=== PATIENT | male | born 1970 ===

== ENCOUNTER 2017-11-26 08:26 | Inpatient (IN) | payer OTHER ==
[2017-11-26] VITALS (10 sets, daily range): BP systolic 92–127; BP diastolic 47–81
[~2017-11-26] VITALS: Ht 167.6 cm; Wt 86.6 kg
[~2017-11-26 08:26] MED LIST: Acetaminophen (Non formulary) 100 ML IV ONE; Atropine Inj 1mg/10ml Syr IV PRN; Dexamethasone 4mg/ml vial ONE; DiphenhydrAMINE 50mg/ml Inj IVP PRN; HYDROcodone/Acetamin 7.5/325 tab ORAL PRN; Hydromorphone 0.5mg/0.5ml inj IVP PRN; Ketorolac 30mg Inj IV PRN; LORazepam Inj 2mg/ml 1ml IV PRN; LR 1000ml 1,000 ML IVLG SCH; Labetalol 5mg/ml 20ml vial IV PRN; Lidocaine 1% MPF 10mg/ml 5ml ONE; Lidocaine 1% Plain 30 ml INJ ONE; Metoclopramide 10mg/2ml Inj IVP PRN; Midazolam 2mg/2ml Inj IVP PRN; NKM; Norco 5mg/325mg tab ORAL PRN; Sodium Chloride 10ml vial INJ ONE; ceFAZolin sod 2 GM in D5W 110 ML IVPB ONE; fentaNYL 100 mcg/2 mL IV PRN; oxyCODONE HCL/Acetaminophen 5/325mg ORAL PRN
[2017-11-26] MEDS ORDERED: Vancomycin 1gm inj IVPB ONE (09:14)
[2017-11-26] MEDS ORDERED: EPINEPHrine 1mg/1ml Amp ONE (09:14)
[2017-11-26] MEDS ORDERED: Thrombin 5000 units spray kit TOPIC ONE (09:15)
[2017-11-26] MEDS ORDERED: Gelfoam Absorbable 1gm powder pkt TOPIC ONE (09:15)
[2017-11-26] MEDS ORDERED: Bupivacaine 0.5% Inj 30 ml vial INJ ONE (09:15)
[2017-11-26] MEDS ORDERED: Thrombin 5000 units TOPIC ONE (09:15)
[2017-11-26] MEDS ORDERED: Bacitracin 50000 Units Vial ONE (09:16)
[2017-11-26] MEDS ORDERED: fentaNYL 100 mcg/2 mL IV ONE ×2 (09:45→12:53)
[2017-11-26] MEDS ORDERED: Zemuron 50mg/5ml Inj IV ONE (09:50)
--- NOTE | 2017-11-26 10:22 | Pre-Procedure Note/Attestation ---
Pre-Procedure Note/Attestation Complete Prior to Procedure Procedure Narrative: Left L4-5 and Left L5-S1 microdecompression and microdiscectomy Attestation I attest that I discussed the nature of the procedure; its benefits; risks and complications; and alternatives (and the risks and benefits of such alternatives ), prior to the procedure, with the patient (or the patient's legal sales representative cash registers). I attest that, if there was a reasonable possibility of needing a blood transfusion, the patient (or the patient's legal sales representative cash registers) was given the [facility] standardized written summary, pursuant to the Isidro Melia Blood Safety Act ([place] Health and Safety Code # 1645, as amended). I attest that I re-evaluated the patient just prior to the surgery and that there has been no change in the patient's H&P, except as documented below: Ganga Hdz MD Nov 26, 2017 10:22
--- NOTE | 2017-11-26 10:22 | Pre-Procedure Note/Attestation ---
Pre-Procedure Note/Attestation Attestation I attest that I discussed the nature of the procedure; its benefits; risks and complications; and alternatives (and the risks and benefits of such alternatives ), prior to the procedure, with the patient (or the patient's legal senior outside sales representative). I attest that, if there was a reasonable possibility of needing a blood transfusion, the patient (or the patient's legal senior outside sales representative) was given the [facility] Services standardized written summary, pursuant to the Siidro Towanda Blood Safety Act ([place] Health and Safety Code # 1645, as amended). I attest that I re-evaluated the patient just prior to the surgery and that there has been no change in the patient's H&P, except as documented below: Ganga Hdz MD Nov 26, 2017 10:22
[2017-11-26] MEDS ORDERED: Morphine Sulfate 2mg/ml Inj IV PRN ×2 (10:30→13:45)
[2017-11-26] MEDS ORDERED: Naloxone 0.4mg/ml Inj IVP PRN (10:30)
[2017-11-26] MEDS ORDERED: Morphine Sulfate 4mg/ml Inj IV PRN ×4 (10:30→13:45)
--- NOTE | 2017-11-26 11:33 | Anethesia Preoperative Eval ---
Anesthesia Pre-op PMH/ROS General Date of Evaluation: Nov 26, 2017 Time of Evaluation: 10:37 Anesthesiologist: Maricruz ASA Score: ASA 3 Mallampati Score Class I : Soft palate, uvula, fauces, pillars visible Class II: Soft palate, uvula, fauces visible Class III: Soft palate, base of uvula visible Class IV: Only hard plate visible Mallampati Classification: Class III Surgeon: Wilder Diagnosis: Back Pain Surgical Procedure: Left L4-5, L5-S1, Microdiscectomy, Foraminotomy, Laminectomy Anesthesia History: none Social History: current smoker Family History: no anesthesia problems Allergies: Coded Allergies: No Known Allergies (Unverified , 11/26/17) Medications: see eMAR Past Medical History Cardiovascular: Reports: HTN Anesthesia Pre-op Phys. Exam Physician Exam Last Vital Signs Date Time Temp Pulse Resp B/P (MAP) Pulse Ox O2 Delivery O2 Flow Rate FiO2 11/26/17 08:55 97.5 60 18 124/79 98 Room Air 97.5 Constitutional: NAD Neurologic: CN 2-12 intact Cardiovascular: RRR Respiratory: CTA Gastrointestinal: S/NT/ND Airway Exam Mallampati Score: Class III MO: limited ROM: full Teeth: intact Anesthesia Pre-op A/P Risk Assessment & Plan Assessment: ASA 3 Plan: GA, BIS, GlideScope Go Status Change Before Surgery: No Pre-Antibiotics Dru Grams Ancef IV Given Within 1 Hr of Incision: Yes Time Given: 10:46 Frederic Alcantara MD Nov 26, 2017 11:33
--- NOTE | 2017-11-26 11:34 | Immediate Post-Op Evaluation ---
Immediate Post-Op Evalulation Immediate Post-Op Evalulation Procedure: Left L4-5, L5-S1, Microdiscectomy, Foraminotomy, Laminectomy Date of Evaluation: Nov 26, 2017 Time of Evaluation: 13:54 IV Fluids: 1000 LR Blood Products: 0 Estimated Blood Loss: 75 Urinary Output: 0 Blood Pressure Systolic: 93 Blood Pressure Diastolic: 64 Pulse Rate: 75 Respiratory Rate: 16 O2 Sat by Pulse Oximetry: 95 Temperature (Fahrenheit): 97.8 Pain Score (1-10): 3 Nausea: No Vomiting: No Complications 0 Patient Status: awake, reacts, patent, extubated, none Hydration Status: adequate Dru Grams Ancef IV Given Within 1 Hr of Incision: Yes Time Given: 10:46 Frederic Alcantara MD Nov 26, 2017 11:34
[2017-11-26] MEDS ORDERED: Neostigmine 1mg/ml 10ml Inj ONE (12:32)
[2017-11-26] MEDS ORDERED: Glycopyrrolate 0.2mg/ml 1ml Vial ONE (12:32)
[2017-11-26] MEDS ORDERED: Metoprolol 5mg/5ml Inj ONE (13:12)
[2017-11-26] MEDS ORDERED: D5 1/2NS 1,000 ML IV SCH (13:38)
--- NOTE | 2017-11-26 13:38 | Brief Operative Note ---
Immediate Post Operative Note Operative Note Pre-op Diagnosis: lumbar radiculopathy Post-op Diagnosis: lumbar radiculopathy Post-op Diagnosis: same as pre-op Findings: consistent w/pre-op dx studies Surgeon: booker Armhole Baster Hand: christy Anesthesiologist: buzz Anesthesia: general Specimen: yes Complications: none Condition: stable Fluids: 1 liter Estimated Blood Loss: minimal - 75cc Drains: none Implant(s) used?: No Ganga Hdz MD Nov 26, 2017 13:37
[2017-11-26] MEDS ORDERED: Norco 5mg/325mg tab ORAL PRN (13:45)
[2017-11-26] MEDS ORDERED: HYDROcodone/Acetamin 7.5/325 tab ORAL PRN ×2 (13:45)
[2017-11-26] MEDS ORDERED: ceFAZolin sod 1 GM in D5W 55 ML IV SCH (14:00)
--- NOTE | 2017-11-26 14:57 | Diagnostic Imaging Report ---
Indication: Pain Technique: Intraoperative fluoroscopic image from spinal surgery. Operating surgeon:Wilder Total fluoroscopy time: 8.1 seconds Total fluoroscopy dose: 2.66 mGy Comparison: None Findings: Single intraoperative fluoroscopic image from spinal surgery submitted for archival the PACS. Image demonstrates surgical instruments projecting posteriorly over the level of L4-5 and L5-S1. Impression: Single intraoperative fluoroscopic image from spinal surgery submitted for archival the PACS. Please see operative report.
[2017-11-26] MEDS: D5 1/2NS 1,000 ML IV SCH (16:30)
[2017-11-26] MEDS ORDERED: Docusate 100mg cap ORAL SCH (18:00)
[2017-11-26] MEDS: Docusate 100mg cap ORAL SCH (18:00)
[2017-11-26] MEDS: ceFAZolin sod 1 GM in D5W 55 ML IV SCH (18:26)
[2017-11-27] VITALS: BP 117/73
[2017-11-27] MEDS: D5 1/2NS 1,000 ML IV SCH ×2 (01:33→12:28)
[2017-11-27] MEDS: ceFAZolin sod 1 GM in D5W 55 ML IV SCH ×2 (01:33→10:17)
[2017-11-27 04:00] VITALS: BP 105/61
[2017-11-27 08:00] VITALS: BP 117/68
--- NOTE | 2017-11-27 09:57 | General Progress Note ---
Progress Note Progress Note doing well [ no leg pain ambulating and eating well a adn o times 3 inc cdi 5/5 in the le calves soft and nt a: doing well p: oob and pt brace dc today pain meds follow up in 7 to 10 days. Ganga Hdz MD Nov 27, 2017 09:57
[2017-11-27] MEDS ORDERED: D5 1/2NS 1000ml IV ONE (10:02)
[2017-11-27] MEDS: Docusate 100mg cap ORAL SCH (10:17)
--- NOTE | 2017-11-27 11:11 | 48 Hour Post Anesthesia Eval ---
Post Anesthesia Evaluation Procedure: Left L4-5, L5-S1, Microdiscectomy, Foraminotomy, Laminectomy Date of Evaluation: Nov 27, 2017 Time of Evaluation: 08:00 Blood Pressure Systolic: 117 0: 68 Pulse Rate: 75 Respiratory Rate: 20 Temperature (Fahrenheit): 98.6 O2 Sat by Pulse Oximetry: 93 Airway: patent Nausea: No Vomiting: No Pain Intensity: 0 Hydration Status: adequate Mental Status/LOC: patient returned to baseline Post-Anesthesia Complications: none Follow-up care needed: N/A Sandie Garcia M.D. Nov 27, 2017 11:11
[2017-11-27 12:00] VITALS: BP 116/71
--- NOTE | 2017-11-27 12:48 | History and Physical ---
History of Present Illness General Date patient seen: Nov 26, 2017 Present Illness HPI 47 year old male with hx of radiculopathy presented to Er to undergo Left L4-5 , L5-S1, Microdiscectomy, Foraminotomy, Laminectomy. Post operatively pt is admitted to surgical floor for post op care. Allergies: Coded Allergies: No Known Allergies (Unverified , 11/26/17) Medication History Scheduled No Known Medications* (NKM - No Known Medications*), 0 ., (Reported) Patient History Healthcare decision maker IVONNE ABBOTT Resuscitation status Full Code Advanced Directive on File Past Medical/Surgical History Past Medical/Surgical History: (1) Lumbar radiculopathy Review of Systems Constitutional: Reports: no symptoms All Other Systems: negative except mentioned in HPI Physical Exam General Appearance: WD/WN, no apparent distress Lines, tubes and drains: peripheral, central line HEENT: normocephalic, atraumatic Neck: non-tender, normal alignment Respiratory/Chest: chest wall non-tender, lungs clear Cardiovascular/Chest: normal peripheral pulses, normal rate Abdomen: normal bowel sounds Genitourinary/Rectal: normal rectal exam Last 24 Hour Vital Signs Date Time Temp Pulse Resp B/P (MAP) Pulse Ox O2 Delivery O2 Flow Rate FiO2 11/27/17 11:11 209.5 75 20 93 11/27/17 08:00 98.6 75 20 117/68 93 Room Air 98.6 11/27/17 04:00 98.2 87 18 105/61 93 Room Air 98.2 11/27/17 00:00 98.0 88 20 117/73 93 Room Air 98.0 11/26/17 20:00 98.2 89 20 127/81 97 Room Air 3 98.2 11/26/17 18:30 98.1 87 20 101/64 97 Nasal Cannula 3 98.1 11/26/17 17:00 97.3 68 20 104/58 96 Nasal Cannula 3 97.3 11/26/17 16:02 97.5 85 18 94/59 94 Nasal Cannula 3 97.5 11/26/17 14:15 78 16 96/57 98 Nasal Cannula 3 11/26/17 14:00 58 16 92/47 98 Simple Mask 8 11/26/17 13:53 57 16 93/52 95 Simple Mask 8 11/26/17 13:48 69 16 101/63 95 Simple Mask 8 11/26/17 13:45 208.0 75 16 95 11/26/17 13:43 97.8 77 16 93/64 95 Simple Mask 8 97.8 Intake and Output 11/26/17 11/27/17 19:00 07:00 Intake Total 1605 ml 1140 ml Output Total 75 ml 1350 ml Balance 1530 ml -210 ml Intake Oral 250 ml 240 ml IV Total 1355 ml 900 ml Output Urine Total 1350 ml Estimated Blood Loss 75 ml # Voids 1 Height (Feet): 5 Height (Inches): 6.00 Weight (Pounds): 191 Medications Current Medications Medications (Trade) Dose Ordered Sig/Steffen Route PRN Reason Start Time Stop Time Status Last Admin Dose Admin Acetaminophen/ Hydrocodone Bitart ([place] 5/325) 1 tab Q3H PRN ORAL pain score 1-3 11/26/17 13:45 12/03/17 13:44 Acetaminophen/ Hydrocodone Bitart ([place] 7.5/325) 1 tab Q3H PRN ORAL pain score 4-6 11/26/17 13:45 12/03/17 13:44 Acetaminophen/ Hydrocodone Bitart ([place] 7.5/325) 2 tab Q3H PRN ORAL pain scale 7-10 11/26/17 13:45 12/03/17 13:44 Al Hydroxide/Mg Hydroxide (Mylanta) 30 ml Q6H PRN ORAL heartburn 11/26/17 22:45 12/26/17 22:44 11/26/17 22:49 Dextrose/Sodium Chloride 1,000 ml @ 100 mls/hr Q10H IV 11/26/17 15:45 12/26/17 15:44 11/27/17 12:28 Docusate Sodium (Colace) 100 mg TWICE A DAY ORAL 11/26/17 18:00 12/26/17 17:59 11/27/17 10:17 Morphine Sulfate (Morphine Sulfate) 2 mg Q4H PRN IV Mild Pain (Pain Scale 1-3) 11/26/17 13:45 12/03/17 13:44 Morphine Sulfate (Morphine Sulfate) 4 mg Q3H PRN IV Severe Pain (Pain Scale 7-10) 11/26/17 13:45 12/03/17 13:44 Morphine Sulfate (Morphine Sulfate) 4 mg Q4H PRN IV Moderate Pain (Pain Scale 4-6) 11/26/17 13:45 12/03/17 13:44 Naloxone HCl (Narcan) 0.1 mg PRN PRN IVP RR<12/min, pt unarousable 11/26/17 10:30 12/26/17 10:29 Assessment/Plan Problem List: (1) Lumbar radiculopathy ICD Codes: M54.16 - Radiculopathy, lumbar region SNOMED: [id number] (2) Left L4-5, L5-S1, Microdiscectomy Assessment/Plan post op care pain management antiemetics prn dvt prophylaxis Mohit Buckley MD Nov 27, 2017 12:48
--- NOTE | 2017-11-27 12:50 | Pulmonology Progress Note ---
Assessment/Plan Problems: (1) Lumbar radiculopathy (2) Left L4-5, L5-S1, Microdiscectomy Assessment/Plan pain is controlled doing better symptomatic treatment on Iv fluids prn IV and/or po analgesics Subjective ROS Limited/Unobtainable: No Constitutional: Reports: no symptoms HEENT: Repors: no symptoms Respiratory: Reports: no symptoms Allergies: Coded Allergies: No Known Allergies (Unverified , 11/26/17) Objective Last 24 Hour Vital Signs Date Time Temp Pulse Resp B/P (MAP) Pulse Ox O2 Delivery O2 Flow Rate FiO2 11/27/17 11:11 209.5 75 20 93 11/27/17 08:00 98.6 75 20 117/68 93 Room Air 98.6 11/27/17 04:00 98.2 87 18 105/61 93 Room Air 98.2 11/27/17 00:00 98.0 88 20 117/73 93 Room Air 98.0 11/26/17 20:00 98.2 89 20 127/81 97 Room Air 3 98.2 11/26/17 18:30 98.1 87 20 101/64 97 Nasal Cannula 3 98.1 11/26/17 17:00 97.3 68 20 104/58 96 Nasal Cannula 3 97.3 11/26/17 16:02 97.5 85 18 94/59 94 Nasal Cannula 3 97.5 11/26/17 14:15 78 16 96/57 98 Nasal Cannula 3 11/26/17 14:00 58 16 92/47 98 Simple Mask 8 11/26/17 13:53 57 16 93/52 95 Simple Mask 8 11/26/17 13:48 69 16 101/63 95 Simple Mask 8 11/26/17 13:45 208.0 75 16 95 11/26/17 13:43 97.8 77 16 93/64 95 Simple Mask 8 97.8 Intake and Output 11/26/17 11/27/17 19:00 07:00 Intake Total 1605 ml 1140 ml Output Total 75 ml 1350 ml Balance 1530 ml -210 ml Intake Oral 250 ml 240 ml IV Total 1355 ml 900 ml Output Urine Total 1350 ml Estimated Blood Loss 75 ml # Voids 1 General Appearance: WD/WN HEENT: atraumatic Respiratory/Chest: chest wall non-tender, lungs clear Cardiovascular: normal peripheral pulses, normal rate Abdomen: normal bowel sounds, soft, non tender Genitourinary: normal external genitalia Extremities: no cyanosis Skin: no lesions 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 Complete Current Medications Medications (Trade) Dose Ordered Sig/Steffen Route PRN Reason Start Time Stop Time Status Last Admin Dose Admin Acetaminophen/ Hydrocodone Bitart ([place] 5/325) 1 tab Q3H PRN ORAL pain score 1-3 11/26/17 13:45 12/03/17 13:44 Acetaminophen/ Hydrocodone Bitart ([place] 7.5/325) 1 tab Q3H PRN ORAL pain score 4-6 11/26/17 13:45 12/03/17 13:44 Acetaminophen/ Hydrocodone Bitart ([place] 7.5/325) 2 tab Q3H PRN ORAL pain scale 7-10 11/26/17 13:45 12/03/17 13:44 Al Hydroxide/Mg Hydroxide (Mylanta) 30 ml Q6H PRN ORAL heartburn 11/26/17 22:45 12/26/17 22:44 11/26/17 22:49 Dextrose/Sodium Chloride 1,000 ml @ 100 mls/hr Q10H IV 11/26/17 15:45 12/26/17 15:44 11/27/17 12:28 Docusate Sodium (Colace) 100 mg TWICE A DAY ORAL 11/26/17 18:00 12/26/17 17:59 11/27/17 10:17 Morphine Sulfate (Morphine Sulfate) 2 mg Q4H PRN IV Mild Pain (Pain Scale 1-3) 11/26/17 13:45 12/03/17 13:44 Morphine Sulfate (Morphine Sulfate) 4 mg Q3H PRN IV Severe Pain (Pain Scale 7-10) 11/26/17 13:45 12/03/17 13:44 Morphine Sulfate (Morphine Sulfate) 4 mg Q4H PRN IV Moderate Pain (Pain Scale 4-6) 11/26/17 13:45 12/03/17 13:44 Naloxone HCl (Narcan) 0.1 mg PRN PRN IVP RR<12/min, pt unarousable 11/26/17 10:30 12/26/17 10:29 Mohit Buckley MD Nov 27, 2017 12:50
[2017-11-27] MEDS ORDERED: NAPROXEN250 MG ORAL (13:04)
[2017-11-27] MEDS ORDERED: NORCO 5-325 TA1 EACH ORAL (13:07)
[2017-11-27] MEDS ORDERED: SOMA350 MG PO (13:08)
--- NOTE | 2017-11-28 01:00 | Operative Note - Dictated ---
DATE OF OPERATION: 11/26/2017 PREOPERATIVE DIAGNOSIS: L4-5 disk protrusion with L5-S1 disk extrusion and stenosis and left lower extremity radiculopathy. POSTOPERATIVE DIAGNOSIS: L4-5 disk protrusion with L5-S1 disk extrusion and stenosis and left lower extremity radiculopathy. PROCEDURE PERFORMED: 1. Left L4-L5 medial facetectomy, laminotomy, foraminotomy, and microdiskectomy. 2. Left L5-S1 laminotomy, medial facetectomy, foraminotomy, and microdiskectomy with lower extremity radiculopathy. 3. Intraoperative use of microscope, intraoperative use of fluoroscopy. SURGEON: Ganga Hdz M.D. BLINTZE ROLLER: Jose De Jesus Mosley M.D. ANESTHESIA: General endotracheal anesthesia. ANESTHESIOLOGIST: Dr. Alcantara. INTRAOPERATIVE FINDINGS: Large disk herniations at L4-L5 and L5-S1 causing impingement of the neural elements. The traversing L5 and S1 nerve roots with foraminal stenosis at L4-L5 and L5-S1 on the left side. ESTIMATED BLOOD LOSS: 50 mL. FLUIDS: One liter crystalloid. INDICATIONS: The is a pleasant gentleman who failed nonoperative treatment and options for above treatment was given. Risks, alternatives, and benefits were addressed and discussed with the patient at length. The patient wished to proceed. The risks include, but are not limited to, anesthesia complications including , medical complications including liver, kidney, cardiopulmonary deficits, infection, bleeding, dural tear, CSF leak, nerve root injury, pars fracture, instability, reherniation, as well as continued symptoms. DESCRIPTION OF OPERATION: The patient was brought into the operating room supine on the stretcher. Subsequently, appropriate IV lines were placed. A 2 g of Ancef was administered. Anesthesia was induced and the patient was intubated. Sequential compression devices were placed onto the bilateral lower extremities. The patient was gently turned over on the Manish frame table. All bony prominences were well padded and the abdomen was assured to lay freely. The L4-L5 and L5-S1 interspaces were positively identified via fluoroscopy and an indelible marker was used to [place] the midline. The patient was prepped and draped in the usual sterile fashion with alcohol, chlorhexidine scrub, ChloraPrep, Ioban draping. At this point, myself and my assistant golf professional were prepped and gowned appropriately. The intraoperatively sterilely draped microscope was brought into the field and a #15 scalpel was used to make a midline incision with monopolar cautery, subperiosteal dissection through the dorsal lumbar fascia was done on the left side at L4-L5 and L5-S1. The lateral facet joint capsule was well preserved and a radiopaque marker was placed at the pedicle level and the L4-L5 and L5-S1 levels were positively identified. Once this was accomplished, attention was first diverted to the L5-S1 interspace. Binder Roller retractors were set into place and with the use of a high-speed drill, straight and curved curettes, #2 through #5 Kerrison punches, Alphonse probe, dental probe, nerve probe, and interlumbar laminotomy, medial facetectomy, removal of the ligamentum flavum, and foraminotomy was done. Hemostasis was achieved with Gelfoam, thrombin, cautery, bipolar cautery, and FloSeal. Once this was done, a complete decompression of the foramina entailed to the exiting nerve root and with a Morton 4 and a nerve root retractor, the neural elements including the traversing nerve root were gently, medially retracted and a large disk herniation was found causing impingement of the neural elements with an #11 blade. A slit incision was made into the posterior annulus and with the use of an Brendon curette, pituitary rongeurs, Peapod nerve probe, [place] probe, a microdiskectomy entailed until all loose disk materials were removed and the floor of the canal was flat and all neural elements were decompressed. The central canal lateral recess as well as the neural foramina were completely decompressed and a Valsalva 40 mmHg was done and there was no CSF leak. Now, attention was diverted to the L4-L5 level. The retractors were removed to that level and with the same instruments, a medial facetectomy, laminotomy, foraminotomy, removal of the ligamentum flavum was done and a foraminotomy for the exiting left L4 nerve root was done and through the nerve root retractor, the neural elements including the traversing nerve root was carefully retracted medially. A disk herniation was found impinging against the neural elements as well as the traversing nerve root and with a #11 blade, a skin incision was carried out in the posterior annulus and with the use of pituitary rongeurs, Brendon curette, Peapod, nerve probe, dental probe, [place]ridgewock probe, a microdiskectomy was accomplished. All loose disk material was removed until the floor of the canal was flat and a complete decompression of the central canal lateral recess and foramina was accomplished, Valsalva 40 mmHg was done. Disk space irrigation was done at both levels. Superficial irrigation was also done. Valsalva was done. There was no CSF leak. Now, hemostasis was achieved. Attention was diverted to closure of the dorsal lumbar fascia was closed with #1 Vicryl sutures in a watertight interrupted fashion. One gram of vancomycin powder was placed suprafascially and subfascially. The subdermal layer was closed with 2-0 Vicryl sutures. Subcuticular layer was closed with 2-0 Vicryl sutures. The skin was closed with Dermabond. Sterile dressing tape was placed. All sponge, needle, and instrument counts were correct. Sterile dressing and tape were placed. The patient was turned supine, was extubated in stable condition, was taken to the recovery room in stable condition. He was found to be neurovascularly intact and was admitted to the hospital for monitoring. Ganga Hdz M.D. DR: RANGEL JOB#: [id number] CC:
== END 2017-11-27 15:45 | disposition home or self-care (01) | DRG 520 ==
LOC: SDSOVERFLO 08:26 → 3E 15:29
PROC: 0SB40ZZ Excision of Lumbosacral Disc, Open Approach (ICD-10-PCS; principal; 2017-11-26 10:30)
PROC: 0SB20ZZ Excision of Lumbar Vertebral Disc, Open Approach (ICD-10-PCS; principal; 2017-11-26 10:30)
DX: M51.16 Intervertebral disc disorders with radiculopathy, lumbar region (principal); M51.17 Intervertebral disc disorders with radiculopathy, lumbosacral region; M48.061 Spinal stenosis, lumbar region without neurogenic claudication; M48.07 Spinal stenosis, lumbosacral region
CPT/HCPCS: 36415; 72020; 76000; 86850; 86900; 86901; 87081; 94003; 94150; J2405; J2710